=== PATIENT | female | born 1935 | race Caucasian/White ===

== ENCOUNTER → 2016-03-30 | Outpatient (CLI) | payer OTHER ==
[~2016-03-30] MED LIST: ADVIL PO; ASPEC81; CLTP PO; CRDCD240; GLUC10007 PO; RXC5 PO; TRIA37.5 PO; VITA400C15 PO
--- NOTE | 2016-03-30 11:55 | DIAGNOSTIC IMAGING REPORT ---
MODIFIED BARIUM SWALLOW CLINICAL HISTORY: Coughing while eating. COMPARISON STUDY: No previous studies for comparison. Fluoroscopy time: 2.4 minutes. FINDINGS: No aspiration was identified within liquids, nectar thick liquids, pudding or crackers with paste. Swallowing mechanism was intact. Note was made of moderate esophageal dysmotility. A suspected small hiatal hernia is suboptimally assessed on this exam. IMPRESSION: 1. Intact swallowing mechanism. No tracheal aspiration. 2. Moderate esophageal dysmotility and a small hiatal hernia, suboptimally assessed on this exam. Electronically signed by: Dewey Melendez M.D. 03/30/2016 11:53 AM Dictated Date/Time: 03/30/2016 11:50 AM
--- NOTE | 2016-03-30 15:32 | SWALLOWING EVALUATION ---
REFERRING SPEECH PATHOLOGIST: N/A HISTORY: This 80 year-old female was referred for a VFSS at [facility] in order to address c/o increased coughing while eating x 2 months. It is worse in the evening than the morning. The patient reports that the symptoms began immediately after having shoulder surgery. The patient has a PMH significant for hypertension, lumbar spinal stenosis, OA, and DJD. She has recently started taking a PPI in the morning, but I see no formal documentation of a diagnosis of GERD. Currently the patient's diet level is regular. PROCEDURE: The patient was seen in the Radiology Department of [facility] for the VFSS. Cursory examination of the oral cavity revealed adequate dentition. Movement of the articulators was WNL. The patient was seated on a stool and was viewed in both the Anterior-Posterior (A-P) and Lateral planes. Volitional phonation exercises completed in the A-P plane revealed bilateral vocal fold movement and vocal intensity within functional limits. In the lateral plane, the patient was given the following boluses: 1 tsp. thin liquid barium x 2, single swallow thin liquid barium self-presented from a cup, sequential swallows of thin liquid barium self-presented from a straw, 1 tsp. nectar-thick liquid barium, single swallow nectar-thick liquid barium self-presented from a cup, 1 tsp. barium pudding, and 1 club cracker with barium pudding. The patient was then repositioned into the A-P plane and given 1 tsp. barium pudding and a single swallow thin liquid barium self-presented from a cup as liquid wash. RESULTS: Oral Stage: There was no interlabial bolus escape. Cohesive bolus between tongue and palate during oral bolus hold exercise. Timely and efficient mastication. Brisk lingual movement for bolus transfer. Trace residue of oral structures after initial swallow of bolus. Pharyngeal swallow initiation when the bolus head was at the posterior angle of the ramus. Oral stage of the swallow was WNL. Pharyngeal Stage: No bolus between the soft palate and pharyngeal wall. Complete superior movement of the thyroid cartilage with complete approximation of the arytenoids to the epiglottic petiole. Complete anterior hyoid excursion. Complete epiglottic inversion. Complete laryngeal vestibular closure. Complete pharyngeal stripping wave. Complete pharyngeal contraction in the AP plane. Complete distention and duration of PES opening. No contrast between tongue base and pharyngeal wall. Complete pharyngeal clearance. No penetration or aspiration during the study. The pharyngeal stage of the swallow was WNL. Esophageal Stage: Mid-distal esophageal retention evidenced. Liquid wash helpful in minimizing retention. SUMMARY/RECOMMENDATIONS: This patient presents with normal oral-pharyngeal swallow function, but presents with s/s esophageal dysfunction. The following is recommended: 1. Slippery diet: choose loose, moist items and avoid dry, doughy, thick items 2. Compensatory strategies: alternate solids and liquids, avoid icy cold beverages, remain upright 20-30 minutes after meal 3. Consideration of f/u with GI A summary of the results and recommendations was discussed with the patient and her daughter immediately following the study. They are anticipating f/u with the referring physician. Thank you for referral of this patient. Please contact me at if any additional information is needed.
--- NOTE | 2016-04-06 08:29 | CODING QUERY MEDICAL NECESSITY ---
SUPPORTING DIAGNOSIS NEEDED Dr. De La Garza, A supporting diagnosis is required for the test/procedure performed on this patient in order for us to be reimbursed by the patient's insurance. Please provide a supporting diagnosis for the following test/procedure listed below next to the test name along with your signature. *If there is no additional diagnosis for this patient that would support the following test/procedure please document that below next to the test/procedure. Test(s)/Procedure(s) that require a supporting diagnosis: * ([id number]) BARIUM SWALLOW DIAGNOSIS: DATE OF SERVICE: 03/30/16 Provider Signature: Date: Thank you Hollis Franklin [facility] Information Management Once completed, please kindly fax back to [phone] For questions please call [phone]
== END | disposition home or self-care (01) ==
LOC: C.RAD 10:53
PROVIDERS: ATTEND Internal Medicine
DX: R05 Cough (principal); K22.4 Dyskinesia of esophagus; K44.9 Diaphragmatic hernia without obstruction or gangrene

== ENCOUNTER → 2016-05-24 | Outpatient (CLI) | payer OTHER ==
[2016-05-24 13:20] LABS: BASO % 0.4 %; BASO ABS # 0.04 K/uL (0-0.2); COMPLETE YES; EOS % 0.9 %; HEMATOCRIT 41.7 % (37-47); IG% 0.3 %; LYMPH % 26.1 %; MEAN CORPUSCULAR HEMOGLOBIN 29.7 pg (25-34); MEAN CORPUSCULAR HGB CONC 34.5 g/dl (32-36); MEAN PLATELET VOLUME 9.1 fL (7.4-10.4); MONO % 7.6 %; NEUT % 64.7 %; PLATELET COUNT 223 K/uL (130-400); RED BLOOD COUNT 4.85 M/uL (4.2-5.4); WHITE BLOOD COUNT 10.72 K/uL (4.8-10.8)
[2016-05-27 11:28] LABS: QUANTIF TB AG-NIL <0.00 IU/ML; QUANTIFERON NIL 0.08 IU/ML
== END | disposition home or self-care (01) ==
LOC: C.LABBFT 11:54
PROVIDERS: ATTEND Physician Assistant
DX: R05 Cough (principal)

== ENCOUNTER 2017-02-09 07:03 | Emergency (ER) | payer OTHER ==
[~2017-02-09] VITALS: Ht 157.5 cm; Wt 81.5 kg
[2017-02-09 07:05] VITALS: TEMP 36.4; Ht 157.5 cm; Wt 81.5 kg
[2017-02-09] MEDS ORDERED: DILT240C57 PO (07:14)
[2017-02-09] MEDS ORDERED: RANI150T3 PO (07:14)
[2017-02-09] MEDS ORDERED: VITA400C28 PO (07:14)
[2017-02-09] MEDS ORDERED: ASPI81TA28 PO (07:14)
[2017-02-09 09:50] VITALS: BP 134/86; PULSE 78; O2SAT 97
--- NOTE | 2017-02-09 10:05 | DIAGNOSTIC IMAGING REPORT ---
L VENOUS DOPP LOWER EXT UNILAT CLINICAL HISTORY: 81 years-old Female presenting with L ankle swelling - r/o DVT. TECHNIQUE: Real-time grayscale and color and spectral Doppler ultrasound imaging of the veins of the left lower extremity was performed. Compression and augmentation were also utilized. COMPARISON: None. FINDINGS: Left: Common femoral vein: Patent. Greater saphenous vein: Patent. Deep femoral vein: Patent. Femoral vein: Patent. Popliteal vein: Patent. Calf veins: Patent. Other: None. IMPRESSION: No evidence of deep venous thrombosis. Electronically signed by: Maykel Abebe M.D. 02/09/2017 10:03 AM Dictated Date/Time: 02/09/2017 9:40 AM
--- NOTE | 2017-02-09 12:13 | EMERGENCY ROOM VISIT NOTE ---
History First contact with patient: 07:23 Chief Complaint: ANKLE PAIN Stated Complaint: ANKLE PAIN History of Present Illness The patient is a 81 year old female who presents to the Emergency Room with complaints of ankle swelling and pain that started overnight. The patient reports that she did wear some high-heeled shoes over the past few days, and thinks that this may have exacerbated her pain. She does report a prior history of pulmonary embolus, and came to the emergency department to rule out deep vein thrombosis. The patient denies any prior history of DVTs or other coagulopathies. The patient denies any recent injuries to the left ankle, and denies any paresthesias or numbness of the left foot or toes. She reports that the pain does somewhat go up into the leg. She does have a history of chronic lumbar pain status post surgery without any ongoing sciatica. The patient reports that the pain is worse when she tries to dorsiflex the ankle. She rates her discomfort a 7 out of 10. 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 (3) Hyperlipidemia, Unspecified (4) Hypertension Nos (5) Osteoarthritis of shoulder (6) Personal History Of Colonic Polyps (7) Personal History Of Pulmonary Embolism (8) Spinal Stenosis, Lumbar Reg, W/Out Neurogenic Claudication Surgical Problems: (1) Acquired Absence Of Both Cervix And Uterus (2) History of back surgery (3) History of shoulder surgery (4) Knee Joint Replacement Status Family History FH: cancer FH: heart disease FH: hypertension Social History Smoking Status: Never Smoker Alcohol Use: none Marital Status: Housing Status: lives alone Occupation Status: retired Current/Historical Medications Scheduled Aspirin (Aspirin Ec), 81 MG PO DAILY Diltiazem Hcl Coated Beads (Cardizem Cd), 240 MG PO QAM Glucosamine Sulfate (Glucosamine), 1,000 MG PO QAM Ranitidine Hcl (Zantac), 150 MG PO DAILY Triamterene/Hctz (Dyazide 37.5MG/25MG), 1 TAB PO QAM Vitamin E (Alph-E), 400 UNITS PO DAILY Physical Exam Vital Signs Date Time Temp Pulse Resp B/P (MAP) Pulse Ox O2 Delivery O2 Flow Rate FiO2 12/22/17 09:50 78 134/86 97 Room Air 02/09/17 07:05 36.4 79 18 126/70 94 Room Air Physical Exam CONSTITUTIONAL: Healthy and well nourished. Alert and oriented X 3 with positive affect. Patient does not appear in any acute distress. HEENT: Normocephalic, atraumatic. Pupils equal, round and reactive. NECK: Full active range of motion without discomfort. MUSCULOSKELETAL: Examination of the left ankle shows mild anterior swelling without erythema or ecchymosis. She is tender over the anterior tendons. No focal tenderness over the medial or lateral malleoli or ligaments. Negative anterior draw. No focal tenderness through the dorsal midfoot, metatarsals, phalanges, calcaneus, Achilles tendon or gastroc. Pedal pulses are intact. INTEGUMENTARY: No rash or other significant dermatologic conditions noted. NEUROLOGIC: Left foot and toes are sensory intact. Medical Decision & Procedures ER Provider Diagnostic Interpretation: Venous ultrasound of the left lower extremity is negative for deep vein thrombosis. Radiologist report is as follows: L VENOUS DOPP LOWER EXT UNILAT CLINICAL HISTORY: 81 years-old Female presenting with L ankle swelling - r/o DVT. TECHNIQUE: Real-time grayscale and color and spectral Doppler ultrasound imaging of the veins of the left lower extremity was performed. Compression and augmentation were also utilized. COMPARISON: None. FINDINGS: Left: Common femoral vein: Patent. Greater saphenous vein: Patent. Deep femoral vein: Patent. Femoral vein: Patent. Popliteal vein: Patent. Calf veins: Patent. Other: None. IMPRESSION: No evidence of deep venous thrombosis. ED Course Patient history and physical exam were performed. Nurse's notes were reviewed. Vital signs were reviewed and were normal. Based on physical exam findings and history, I suspect that the patient has a mild tendinitis from wearing high heeled shoes. However, the patient is concerned for the possibility of DVT. A venous ultrasound was performed and was negative for deep vein thrombosis. The patient was encouraged to intermittently apply ice to the ankle. She may also wear an ankle support as needed. Ibuprofen or Tylenol if needed for additional pain relief. She was encouraged to follow-up with her PCP or orthopedics if symptoms are not improving within the next week. The patient was happy with plan of care, voiced understanding of all discharge instructions , refused any analgesics while in the emergency department, and rated her pain a 4 out of 10 at the conclusion of my exam. The patient was also seen and examined by Dr. Cooper, ED attending physician , who agrees with workup and plan of care. Medical Decision Medication Reconcilliation Current Medication List: was personally reviewed by me Blood Pressure Screening Patient's blood pressure: Normal blood pressure Impression Primary Impression: Left ankle tendonitis Departure Information Referrals Nestor De La Garza D.OErnestine (PCP) Patient Instructions My [facility]
== END 2017-02-09 10:49 | disposition home or self-care (01) ==
LOC: C.EDB 07:04
DX: M77.9 Enthesopathy, unspecified (principal); M25.472 Effusion, left ankle; Z79.899 Other long term (current) drug therapy; I10 Essential (primary) hypertension; Z86.711 Personal history of pulmonary embolism

== ENCOUNTER 2019-11-03 06:48 | Observation (INO) ==
--- NOTE | 2019-10-06 15:52 | PAT Medication Instructions ---
Medication Instructions Date of Service October 06, 2019 Home Medications Medication Instructions Recorded meclizine 25 mg PO TID PRN #14 tab 09/27/19 ondansetron HCl [Zofran] 4 mg PO Q6H PRN #14 tab 09/27/19 aspirin 81 mg tablet,delayed release 81 mg PO MOWEFR@0800 diltiazem HCl 240 mg capsule,extended release 24 hr 240 mg PO QAM triamterene 37.5 mg-hydrochlorothiazide 25 mg capsule 1 cap PO QAM vitamin E (dl, acetate) 400 unit capsule 400 units PO QAM gabapentin 100 mg capsule 100 mg PO HS ibuprofen [Advil] 600 - 800 mg PO BID PRN meclizine 25 mg PO TID PRN ondansetron HCl [Zofran] 4 mg PO Q6H PRN cholecalciferol (vitamin D3) [Vitamin D3] 25 mcg PO QAM ASK your surgeon for instructions aspirin 81 mg tablet,delayed release 81 mg PO MOWEFR@0800 ibuprofen [Advil] 600 - 800 mg PO BID PRN STOP taking 2 weeks before surgery If surgery is within 2 weeks, stop taking as soon as possible. vitamin E (dl, acetate) 400 unit capsule 400 units PO QAM DO NOT take the morning of surgery triamterene 37.5 mg-hydrochlorothiazide 25 mg capsule 1 cap PO QAM cholecalciferol (vitamin D3) [Vitamin D3] 25 mcg PO QAM Take morning of surgery With a small sip of water, OTHERWISE NOTHING TO EAT OR DRINK AFTER MIDNIGHT: diltiazem HCl 240 mg capsule,extended release 24 hr 240 mg PO QAM meclizine 25 mg PO TID PRN (if needed) ondansetron HCl [Zofran] 4 mg PO Q6H PRN (if needed) Take evening before surgery gabapentin 100 mg capsule 100 mg PO HS meclizine 25 mg PO TID PRN (if needed) ondansetron HCl [Zofran] 4 mg PO Q6H PRN (if needed) Other Notes If you have any questions please call us at [phone] or [phone] or [phone] or [phone]
--- NOTE | 2019-10-07 12:17 | Anesthesiology Consultation ---
Date of Service October 07, 2019 Assessment & Plan (1) Encounter for pre-operative examination: COVID Status: As of 10/06 assessment, patient denies travel to endemic area, known exposure/sick contacts, or symptoms of COVID19. Patient instructed that they and their household members must follow strict social distancing guidelines, wear a mask in public and avoid travel for 14 days prior to surgery. Preoperative COVID19 testing to be completed prior to surgery per surgeon's arra ngements. Patient made aware to self-isolate as much as possible between COVID testing and surgery. *Daughter and patient note that the patient requires very little medicine for sedation--at recent ED visit the patient was given 12.5 mg of Benadryl and was completely sedated for several hours per their report. Chart Review Chart Review: Acceptable Risk for Surgery and Patient seen in Pre Admission Testing Teaching & Discussion Instructed NPO after midnight before surgery, except medications with 15 cc of water. Medication instructions provided according to the PAT guidelines. History Surgery Operation Date: 11/03/19 11:10 Proposed Procedures p Right Total Knee Arthroplasty - Erick Montes De Oca DO Height/Weight Height: 5 ft 3 in Weight: 77.111 kg Allergies Allergy/AdvReac Type Severity Reaction Status Date / Time No Known Allergies Allergy Verified 09/30/19 13:19 Medications Home Medications Medication Instructions Recorded Confirmed Last Taken aspirin 81 mg tablet,delayed 81 mg PO MOWEFR@0800 06/27/18 09/30/19 09/24/19 release diltiazem HCl 240 mg 240 mg PO QAM 06/27/18 09/30/19 09/26/19 capsule,extended release 24 hr triamterene 37.5 1 cap PO QAM 06/27/18 09/30/19 09/26/19 mg-hydrochlorothiazide 25 mg capsule vitamin E (dl, acetate) 400 unit 400 units PO QAM 06/27/18 09/30/19 09/26/19 capsule gabapentin 100 mg capsule 100 mg PO HS cap 07/31/19 09/30/19 09/26/19 200 mg ibuprofen [Advil] 600 - 800 mg PO BID PRN 09/27/19 09/30/19 09/26/19 12:00 600 mg meclizine 25 mg PO TID PRN #14 tab 09/27/19 09/30/19 Unknown ondansetron HCl [Zofran] 4 mg PO Q6H PRN #14 tab 09/27/19 09/30/19 Unknown cholecalciferol (vitamin D3) 25 mcg PO QAM 09/29/19 09/30/19 Unknown [Vitamin D3] Past Medical History Medical History (Updated 10/07/19 @ 12:18 by Donovan Overton) Fatty liver disease, nonalcoholic With weight loss> RESOLVED HTN (hypertension) Hx: UTI (urinary tract infection) Treated at [facility] ED 09/26, had some stroke-like symptoms, imaging negative, ruled 2/2 UTI and vertigo. Lumbar facet joint syndrome Osteoarthritis Pulmonary embolism 25 YRS AGO AFTER HYSTERECTOMY> COUMADIN Spinal stenosis Moderate at L3-4 Vertigo Chronic, intermittent. Exercise / Class Metabolic Activity III < 4 Walking/Shop/Light housework (Denies CP or SOB with ambulation on one level; feels would be mildly SOB with 1 FOS) Past Family History Family History Mother Breast cancer Daughter Breast cancer Past Surgical History Surgical History History of adenoidectomy History of colonoscopy History of esophagogastroduodenoscopy (EGD) History of fusion of lumbar spine History of hysterectomy History of knee replacement LEFT History of shoulder replacement LEFT History of tonsillectomy History of tooth extraction Past Anesthesia History No Hx of Anesthesia Complications and No Family Hx of Anesthesia Complications History of PONV No Hx of PONV and No Hx of Motion Sickness Social History Smoking Status: Never smoker Do You Dip or Chew Tobacco: No Hx Alcohol Use: No (very rare) Alcohol type: wine alcohol intake frequency: holidays/special occasions only Hx Substance Use: No substance use type: does not use Review of Systems Pt denies any recent chest pain, shortness of breath, palpitations, cough, fever, URI, or uncontrolled acid reflux. Physical Exam Vital Signs BP: 120/78 P: 76bpm SPO2: 94% RA T: 97.8 F R: 16 ENMT Mouth: + dental restorations (few crowns on molars); no chipped teeth and no loose teeth Thyromental Distance: > or= 3.5 Finger Breadths (3.5) Mallampati Class: III Neck normal visual inspection; neck extension not limited Respiratory normal respiratory effort Auscultation: lungs clear to auscultation bilaterally Cardiovascular Rate/Rhythm: regular rate and regular rhythm Heart Sounds: no murmur Extremities: no edema Testing Laboratory Results 10/07/19 12:25 Blood Type A Negative 10/07/19 12:25 Antibody Screen NEGATIVE 10/07/19 12:25 09/27/19 WBC: 10.74 H/H: 14.9/42.8 PLATELETS: 258 PT: 10.6 PTT: 23.6 INR: 1.0 Electrocardiogram Date: 09/27/19 Findings: + NSR @ (70bpm with 1st degree AV block) Possible inferior infarct, age undetermined. Compared to EKG from 11/24/15, T wave amplitude has decreased in lateral leads. Chest X-Ray Date: 10/07/19 Findings: + NAD
--- NOTE | 2019-10-07 13:03 | XRay Report ---
XR chest Pre-admission PA/Lat CLINICAL HISTORY: Preoperative evaluation. COMPARISON STUDY: Chest CT May 18, 2016. FINDINGS: Lung volumes are normal. Lungs are clear. There is no pneumothorax or pleural effusion. Car diac size is normal. Mediastinal contours are normal. There is no evidence for pulmonary edema. Incid ental note is made of a left shoulder arthroplasty and partially visualized postoperative findings wi thin the lumbar spine. Tortuosity of the descending thoracic aorta is unchanged. IMPRESSION: No acute cardiopulmonary findings. ACT 112: Negative or not required by law. Electronically signed by: Dewey Melendez M.D. 10/07/2019 1:02 PM
[2019-10-07 14:31] LABS: BUN Creatinine Ratio 24.5 (10-20); Calcium 8.7 mg/dl (8.5-10.1); Est GFR (African American) 93.4; Est GFR (Non-African American) 80.6; Potassium 4.2 mmol/L (3.5-5.1)
--- NOTE | 2019-10-30 07:37 | History & Physical Report ---
Date of Service October 30, 2019 Assessment & Plan (1) Osteoarthritis of right knee: We will proceed with a right total knee arthroplasty. Postoperatively she will be started on aspirin for DVT prophylaxis and kept overnight in the hospital for postoperative medical management. She plans to use an inpatient rehab facility upon discharge. Present on Admission?: Yes History of Present Illness Chief Complaint: Primary osteoarthritis of the right knee Primary Care Provider: Nestor De La Garza DO Sara is a pleasant 84-year-old female who has been dealing with chronic increasing right knee pain. X-rays and clinical examination have been diagnostic for advanced osteoarthritis of the right knee. After failing conservative treatment, she has elected to proceed with a right total knee arthroplasty. She does have a history of a left knee replacement done by Dr. Taurus ca about 4 years ago. She is done well with that. She also has a history of a pulmonary embolism following a hysterectomy about 30 years ago. She has had no issues since. Allergies Allergy/AdvReac Type Severity Reaction Status Date / Time No Known Allergies Allergy Verified 09/30/19 13:19 Home Medications Home Medications Medication Instructions Recorded Confirmed Type aspirin 81 mg tablet,delayed 81 mg PO MOWEFR@0800 06/27/18 09/30/19 History release diltiazem HCl 240 mg 240 mg PO QAM 06/27/18 09/30/19 History capsule,extended release 24 hr triamterene 37.5 1 cap PO QAM 06/27/18 09/30/19 History mg-hydrochlorothiazide 25 mg capsule vitamin E (dl, acetate) 400 unit 400 units PO QAM 06/27/18 09/30/19 History capsule gabapentin 100 mg capsule 100 mg PO HS cap 07/31/19 09/30/19 History ibuprofen [Advil] 600 - 800 mg PO BID PRN 09/27/19 09/30/19 History meclizine 25 mg PO TID PRN #14 tab 09/27/19 09/30/19 Rx ondansetron HCl [Zofran] 4 mg PO Q6H PRN #14 tab 09/27/19 09/30/19 Rx cholecalciferol (vitamin D3) 25 mcg PO QAM 09/29/19 09/30/19 History [Vitamin D3] Past Med/Surg History Medical History Fatty liver disease, nonalcoholic With weight loss> RESOLVED HTN (hypertension) Hx: UTI (urinary tract infection) Treated at [facility] ED 09/26, had some stroke-like symptoms, imaging negative, ruled 2/2 UTI and vertigo. Lumbar facet joint syndrome Osteoarthritis Pulmonary embolism 25 YRS AGO AFTER HYSTERECTOMY> COUMADIN Spinal stenosis Moderate at L3-4 Vertigo Chronic, intermittent. Surgical History History of adenoidectomy History of colonoscopy History of esophagogastroduodenoscopy (EGD) History of fusion of lumbar spine History of hysterectomy History of knee replacement LEFT History of shoulder replacement LEFT History of tonsillectomy History of tooth extraction Family History Mother Breast cancer Daughter Breast cancer Social History Smoking Status: Never smoker Second Hand Exposure: Yes (HUSBNAND SMOKED); Hx Alcohol Use: No (very rare) Hx Substance Use: No Preferred Language: Danish Communication Ability: Effective Visual Impairment: Limited Hearing Ability: Normal Painter Ski Edge Required: No Beliefs That Will Affect Care: None marital status: / Current Living Situation: Alone Current Living Situation Comment: L[facility] IN [facility] current occupational status: retired Feels Safe at Home: Yes Review of Systems Review of Systems: All systems reviewed & are unremarkable except as noted in HPI & below Physical Exam Constitutional: WD/WN, vitals as above Eyes: PERRL, conjunctivae normal, anicteric sclerae ENMT: external ear and nose normal, oropharynx normal Neck: trachea midline, no thyromegaly Respiratory: normal respiratory effort Cardiovascular: RRR, no murmur, no edema Gastrointestinal (Abdomen): normal bowel sounds, soft, nontender, no hepatosplenomegaly Musculoskeletal: On physical examination of the right knee there is a trace effusion. There is near full range of motion and no evidence of instability. There is significant tenderness palpation along the medial and lateral joint lines and over the distal femoral condyles. Psychiatric: A+Ox3, euthymic affect Results & Data Results & Data ([facility]) Diagnostic Findings Radiographs of the right knee demonstrate advanced osteoarthritis with joint space narrowing osteophyte formation and [id number] articulation. PG Care Time/CCT Total # of Minutes Spent Total Time Spent with Patient: Total time spent is greater than 50% in coordina tion of care (as documented) at patient's floor/unit and/or counseling patient: Coding Level of Care Code 08851 OBS Care - Level 2 Diagnoses Osteoarthritis of right knee M17.11
[~2019-11-03 06:48] MED LIST changes: +ACETAMINOPHEN 500 MG TAB PO SCH; -ADVIL PO; -ASPEC81; +BUPIVACAINE 0.5 % 5 MG/1 ML PF 10ML VIAL ONE; +CEFAZOLIN 2000MG 2,000 MG/15 ML SYR IV SCH; -CLTP PO; -CRDCD240; +FAMOTIDINE 20 MG TAB PO SCH; +GABAPENTIN 300 MG CAP PO SCH; -GLUC10007 PO; +LR 500ML BOLUS, THEN 15ML/HR IV SCH; +LR 60ML/HR IV SCH; +ROPIVACAINE 0.5% 5 MG/ML 30 ML VIAL ONE; +ROPIVACAINE 0.5% HCL/PF 150 MG, BUPIVACAINE 0.5% MPF 30 ML, EPINEPHrine 30MG/30ML (OR U... INSTIL SCH; -RXC5 PO; +TRANEXAMIC ACID 1,000 MG **IV Intra-op IV SCH; +TRANEXAMIC ACID 1,000 MG **IV Pre-op IV SCH; -TRIA37.5 PO; -VITA400C15 PO; +dexAMETHasone 4 MG TAB PO SCH
[2019-11-03] MEDS ORDERED: fentaNYL citrate 100 MCG/2 ML VIAL ONE (07:53)
[2019-11-03] MEDS ORDERED: MIDAZOLAM HCL 1 MG/ML 2ML VIAL ONE (07:53)
--- NOTE | 2019-11-03 08:52 | History & Physical Bridge Note ---
Date of Service November 03, 2019 History & Physical Bridge Note I have examined the patient, reviewed the History & Physical and in the interval since the performance of the History & Physical I have noted the following changes of clinical significance: no changes noted
[2019-11-03] MEDS ORDERED: ORTHO JOINT ANESTHETIC ONE (09:04)
[2019-11-03] MEDS ORDERED: LIDOCAINE HCL 2% 2 ML VIAL/AMP(20MG/ML) INFIL ONE (09:43)
[2019-11-03] MEDS ORDERED: PROPOFOL IV EMULSION 10 MG/ML 20 ML VIAL IV ONE (09:43)
--- NOTE | 2019-11-03 10:49 | Operative Report ---
PG Post Operative Report Pre & Post Diagnosis Operation Date: 11/03/19 09:20 Pre-Op Diagnosis: Degenerative Joint Disease Right Knee Post-Op Diagnosis: Degenerative Joint Disease Right Knee I identified the patient and participated in the time-out.: Yes Procedure Operation Date: 11/03/19 09:20 Actual Procedures p Right Total Knee Arthroplasty, Cemented(Right) - Erick Montes De Oca DO Surgeon Erick Montes De Oca DO Clinical Care Coordinator Erick Frye PAC Estimated Blood Loss 10 Findings Consistent with Post-Op Diagnosis Specimens Right femoral and tibial bone Complications none Disposition Disposition: Recovery Room Indications Sara is a pleasant 84-year-old female who is been dealing with chronic increasing right knee pain. X-rays and clinical examination have been diagnostic for advanced osteoarthritis of the right knee. After failing conservative treatment, she has elected to proceed with a right total knee arthroplasty. Description of Procedure Implants used: I used a Gabrielle Persona total knee arthroplasty system with a size 7 standard posterior stabilized femur, D tibia, 32 patella, and a size 14 CPS polyethylene bearing. All components were cemented in place with Palacos G cement. Sara arrived [facility] for the above procedure. She was seen in the preoperative holding area and the operative extremity was identified and signed. She was given a preoperative antibiotic, TXA, a spinal anesthetic and an adductor nerve block. She was taken back to the operating room and laid on the table in supine position. She was given basic sedation. The operative k nee was then prepped and draped in sterile fashion. A timeout was done, and the patient and the operative extremity was properly identified. A midline incision was made directly over the patella. Dissection was taken down to the extensor mechanism. A subvastus arthrotomy was used. The medial retinaculum was released and the fat pad was mostly excised. The knee was flexed and the ACL, PCL, and meniscus were removed. A drill was sent down the center of the femoral canal followed by an intramedullary ramiro. Off that ramiro a distal femoral cutting block was placed. 9 mm was resected off the distal femur at 5 of valgus. A posterior referencing AP sizing guide was then placed on the distal femur. The femur measured to be a size 7 standard. 2 drill holes were placed in 3 of external rotation. A 4-in-1 cutting block was then impacted into place. Anterior, posterior, and chamfer cuts were then made. The box was then resected for the posterior stabilizing component. The proximal tibia was then exposed. An external tibial alignment guide was placed. A tibial cut guide was then anchored in place and the proximal tibia was then resected. The posterior aspect of the knee was then opened up and any additional meniscus fragments and osteophytes were removed. The tibia measured to be a size D. The tibial plate was then placed in the appropriate rotation and the tibia was drilled and punched. Trial components were then placed. I used a size 14 CPS polyethylene insert. The knee was brought through a full range of motion and felt to be stable. The peg holes for the femoral component were then drilled. The patella was then everted and 9 mm was resected off the posterior aspect of the patella. The patella measured to be a size 32. 3 peg holes were then drilled. A trial patella was placed. The knee was once again brought through a full range of motion and felt to be stable. Trial components were then removed. The surrounding soft tissues were injected with 100 cc of an orthopedic pain control cocktail. All components were then cemented into place with Palacos G cement. The final polyethylene insert was then snapped into place. Once cement was dry the tourniquet was deflated. Hemostasis was obtained. A dilute betadyne lavage was then done for 3 minutes. The joint was then irrigated with normal saline solution. The subvastus arthrotomy was then closed with #1 Vicryl suture. The skin was closed with 2-0 Vicryl, 3-0V lock suture, and jennifer. A Silverlon and a soft compressive dressing were placed. She was then transferred to a hospital bed and taken to the postanesthesia care unit in stable condition. She tolerated the procedure well. Erick Frye PA-C, was present for the entire procedure. He was critical for patient positioning, prepping, draping, retraction exposure, wound closure and application of sterile dressing. I attest to the content of the Intraoperative Record and any orders documented therein. Any exceptions are noted below.
--- NOTE | 2019-11-03 11:43 | Anesthesiology Progress Note ---
Date of Service November 03, 2019 Anesthesia Post Procedure Vital Signs Vital Signs: Temp Pulse Pulse Resp BP Pulse Ox 11/03/19 11:25 36.5 C 64 16 101/52 L 93 11/03/19 11:15 64 16 96/55 L 93 11/03/19 11:05 67 16 97/52 L 97 11/03/19 10:56 36.4 C L 70 16 93/53 L 97 11/03/19 08:40 73 20 128/87 95 11/03/19 07:21 36.5 C 84 18 141/84 H 97 Transfer of Care Handoff Completed per policy Notes Mental Status: alert / awake / arousable and participated in evaluation Patient Amnestic to Procedure: Yes Nausea / Vomiting: adequately controlled Pain: adequately controlled Airway Patency, RR, SpO2: stable & adequate BP & HR: stable & adequate Hydration State: stable & adequate Neuraxial Anesthesia: was administered and sensory block is resolving Anesthetic Complications: no major complications apparent
--- NOTE | 2019-11-03 11:50 | XRay Report ---
XR knee RT 2V routine CLINICAL HISTORY: Postoperative examination COMPARISON: None. DISCUSSION: There are postsurgical changes of a total right knee arthroplasty and patellar resurfacin g. The femoral tibial components appear well seated. There are overlying skin jennifer. There is gas p resent within the soft tissues consistent with recent surgery. IMPRESSION: Postsurgical changes of a total right knee arthroplasty. ACT 112: Negative or not required by law. Electronically signed by: Dwain Guzman M.D. 11/03/2019 11:46 AM
[2019-11-03] MEDS ORDERED: NALOXONE HCL 0.4 MG/1 ML VIAL/CARP IV PRN (11:58)
[2019-11-03] MEDS ORDERED: ONDANSETRON INJ 2 MG/ML 2 ML VIAL IV PRN (11:58)
[2019-11-03] MEDS ORDERED: METOCLOPRAMIDE HCL INJ 5 MG/ML 2 ML VIAL IV PRN (11:58)
[2019-11-03] MEDS ORDERED: HYDROmorphone INJ 0.5 MG/0.5 ML SYR IV PRN (11:58)
[2019-11-03] MEDS ORDERED: bisacodyL 10 MG SUPP PR PRN (11:58)
[2019-11-03] MEDS ORDERED: MAGNESIUM HYDROXIDE SUSP 30 ML UDC PO PRN (11:58)
[2019-11-03] MEDS ORDERED: ONDANSETRON 4 MG OD TAB PO PRN (12:02)
[2019-11-03] MEDS ORDERED: MECLIZINE HCL 25 MG TAB PO PRN (12:15)
[2019-11-03] MEDS ORDERED: SODIUM CHLORIDE 0.9% 1000ML 1,000 ML IV SCH (12:15)
[2019-11-03] MEDS: ACETAMINOPHEN 500 MG TAB PO SCH ×2 (13:05→21:10)
[2019-11-03] MEDS: KETOROLAC TROMETHAMINE 15 MG/ML VIAL IV SCH ×2 (13:06→19:14)
[2019-11-03] MEDS: CEFAZOLIN 2000MG 2,000 MG/15 ML SYR IV SCH (16:29)
[2019-11-03] MEDS: SENNA 8.6 MG TAB PO SCH (21:10)
[2019-11-03] MEDS: GABAPENTIN 100 MG CAP PO SCH (21:10)
[2019-11-03] MEDS: DOCUSATE SODIUM 100 MG CAP PO SCH (21:10)
[2019-11-03] MEDS: ASPIRIN 81 MG ECTAB PO SCH (21:10)
[2019-11-04] MEDS: CEFAZOLIN 2000MG 2,000 MG/15 ML SYR IV SCH (00:02)
[2019-11-04] MEDS: KETOROLAC TROMETHAMINE 15 MG/ML VIAL IV SCH ×2 (00:02→06:44)
[2019-11-04 06:17] LABS: Hematocrit (blood only) 38.6 % (37-47); Hemoglobin 12.8 g/dL (12.0-16.0); Mean Corpuscular Hemoglobin 29.9 pg (25-34); Mean Corpuscular Hgb Conc 33.2 g/dL (32-36); Mean Corpuscular Volume 90.2 fL (80-100); Mean Platelet Volume 10.1 fL (7.4-10.4); Platelet Count 289 K/uL (130-400); RDW Coefficient of Variation 13.5 % (11.5-14.5); RDW Standard Deviation 44.6 fL (36.4-46.3); Red Blood Count 4.28 M/uL (4.2-5.4); White Blood Count 19.28 K/uL (4.8-10.8)
[2019-11-04] MEDS: ACETAMINOPHEN 500 MG TAB PO SCH ×3 (06:21→21:45)
[2019-11-04 06:52] LABS: BUN Creatinine Ratio 21.8 (10-20); Calcium 9.3 mg/dl (8.5-10.1); Est GFR (Non-African American) 79.4
--- NOTE | 2019-11-04 07:07 | Orthopedic Progress Note ---
Date of Service November 04, 2019 Assessment & Plan (1) Status post right knee replacement: Overall she is doing fairly well. She got into much pain in the right knee. She will be seen by physical therapy today for ambulation and range of motion exercises. She is on aspirin for DVT prophylaxis. She was hoping to be discharged to a rehab facility. I think that is reasonable because she does live alone at home. If a bed becomes available for rehab facility today, and she is doing fairly well, then she can be discharged later today to the rehab facility. She is scheduled to follow-up with orthopedics in 2 weeks. Present on Admission?: Yes Admission and Anticipated Discharge Date Admission Date: November 03, 2019 Leena Ruiz was seen and examined at bedside this morning. Overall she is doing fairly well. She is having too much pain in the right knee. She has been up and ambulating around the room. She has no complaints. Physical Exam Musculoskeletal: On physical examination of the right knee, the dressing is clean and dry. She is flexing her knee to almost 90 degrees. She has active dorsiflexion and plantarflexion of her right ankle. Results & Data ([facility]) Vital Signs (Past 12 Hours) Vital Signs Temp Pulse Pulse Resp BP Pulse Ox 11/04/19 02:23 36.5 C 65 16 122/72 95 11/03/19 22:56 36.7 C 70 16 124/76 94 11/03/19 20:00 36.8 C 71 16 115/70 92 Laboratory Results H & H 11/04/19 Range/Units 05:32 Hgb 12.8 (12.0-16.0) g/dL Hct 38.6 (37-47) % Diagnostic Findings Postoperative x-rays of the right knee show the prosthesis to be in anatomic alignment without any evidence of fracture, dislocation, or loosening. PG Care Time/CCT Total # of Minutes Spent Total Time Spent with Patient: Total time spent is greater than 50% in coordination of care (as documented) at patient's floor/unit and/or counseling patient: Coding Level of Care Code None Diagnoses Status post right knee replacement Z96.651
[2019-11-04] MEDS: OXYCODONE HCL IR 5 MG TAB (IMMEDIATE RELEASE) PO PRN ×3 (07:37→21:42)
[2019-11-04] MEDS ORDERED: dexAMETHasone 4 MG TAB PO SCH (08:00)
[2019-11-04] MEDS: MULTIVITAMIN TAB PO SCH (09:19)
[2019-11-04] MEDS: ASPIRIN 81 MG ECTAB PO SCH ×2 (09:19→21:44)
[2019-11-04] MEDS: DOCUSATE SODIUM 100 MG CAP PO SCH ×2 (09:20→17:51)
[2019-11-04] MEDS: KETOROLAC TROMETHAMINE 10 MG TABLET PO SCH ×3 (09:26→21:43)
[2019-11-04] MEDS: dilTIAZem HCL 240 MG CAPCR PO SCH (09:27)
[2019-11-04] MEDS: TRIAMTERENE/HCTZ 37.5/25MG CAP PO SCH (13:57)
[2019-11-04] MEDS: SENNA 8.6 MG TAB PO SCH (17:50)
[2019-11-04] MEDS: GABAPENTIN 100 MG CAP PO SCH (21:44)
[2019-11-05] MEDS: ACETAMINOPHEN 500 MG TAB PO SCH ×2 (05:56→15:03)
--- NOTE | 2019-11-05 06:42 | Orthopedic Progress Note ---
Date of Service November 05, 2019 Assessment & Plan (1) Status post right knee replacement: Overall she is doing well. She is not having much pain in the right knee. She will be seen by physical therapy today for ambulation and range of motion exercises. She is on aspirin for DVT prophylaxis. She can be discharged to a rehab facility later today. She will follow-up with orthopedics in 2 weeks. Present on Admission?: Yes Admission and Anticipated Discharge Date Admission Date: November 03, 2019 Leena Ruiz was seen and examined at bedside this morning. Overall she is doing very well. She is having much less pain than she did yesterday. She has been participating well with physical therapy. She is happy her dressing has been changed. She has no complaints. Physical Exam Musculoskeletal: On physical examination of the right knee, the dressing is clean and dry. She sitting with her knee flexed at 90 degrees. She has active dorsiflexion and plantarflexion of her right ankle. Results & Data ([facility]) Vital Signs (Past 12 Hours) Vital Signs Temp Pulse Resp BP Pulse Ox 11/04/19 23:44 36.7 C 68 19 119/73 94 11/04/19 19:07 36.6 C 64 18 119/64 94 PG Care Time/CCT Total # of Minutes Spent Total Time Spent with Patient: Total time spent is greater than 50% in coordination of care (as documented) at patient's floor/unit and/or counseling patient: Coding Level of Care Code None Diagnoses Status post right knee replacement Z96.651
[2019-11-05] MEDS: OXYCODONE HCL IR 5 MG TAB (IMMEDIATE RELEASE) PO PRN ×2 (07:33→15:07)
[2019-11-05] MEDS: ASPIRIN 81 MG ECTAB PO SCH (08:54)
[2019-11-05] MEDS: dilTIAZem HCL 240 MG CAPCR PO SCH (08:54)
[2019-11-05] MEDS: TRIAMTERENE/HCTZ 37.5/25MG CAP PO SCH (08:54)
[2019-11-05] MEDS: MULTIVITAMIN TAB PO SCH (08:54)
[2019-11-05] MEDS: DOCUSATE SODIUM 100 MG CAP PO SCH (08:54)
--- NOTE | 2019-11-06 06:43 | Discharge Summary ---
Date of Service November 06, 2019 Admission HPI Per Admitting Provider Sara is a pleasant 84-year-old female who has been dealing with chronic increasing right knee pain. X-rays and clinical examination have been diagnostic for advanced osteoarthritis of the right knee. After failing conservative treatment, she has elected to proceed with a right total knee arthroplasty. She does have a history of a left knee replacement done by Dr. Taurus ca about 4 years ago. She is done well with that. She also has a history of a pulmonary embolism following a hysterectomy about 30 years ago. She has had no issues since. Principal Diagnosis Right knee replacement Discharge Data Allergies Allergy/AdvReac Type Severity Reaction Status Date / Time No Known Allergies Allergy Verified 11/03/19 07:08 Consultations 11/03/19 11:58 Consult Case Management - Discharge Planning Routine Procedures Performed Operation Date: 11/03/19 09:20 Actual Procedures p Right Total Knee Arthroplasty, Cemented(Right) - Erick Montes De Oca DO Ordered Studies 11/03/19 05:00 US - OR guided needle placemen Routine Hospital Course (1) Status post right knee replacement: On November 03, 2019 Sara arrived at [facility] and underwent a right knee replacement without complication. She had a spinal anesthetic. Postoperatively she was started on aspirin for DVT prophylaxis and transferred to the general orthopedic floors. Her hospital course was uneventful. On postop day #1 her H&H was stable and her pain was well controlled. She was able to precipitate well with physical therapy doing ambulation and range of motion exercises. On postop day #2 she continued to do very well. She was then discharged to home with [employer]. She will follow-up with orthopedics in 2 weeks. Total Time Total Time Spent Total Time Spent (In Minutes): 20 Discharge Plan Discharge Items Patient Disposition: Home - Home Health Services Reason For Visit: DJD Right Knee Discharge Diagnosis: Right knee replacement Activity: As commented below Non-emergency contact: Surgeon Call non-emergency contact if: your wound has increased redness and your wound has increased drainage Follow-up/Referrals: Nestor De La Garza DO [Primary Care Provider] - Diet: Regular Addtl Attending Provider Instructions: Activity and Therapy Recommendations: * If you are using [facility] then therapy will be provided at your home until they feel you have accomplished all of your goals. * If you are using [facility] then Physical Therapy will be provided until they feel you are ready to start Outpatient Physical Therapy. * If you are not using home therapy then Outpatient Physical Therapy should start about 3-5 days from your day of surgery. Therapy will last about 6-10 weeks * It is important not to put a pillow under your knee when you are relaxing or sleeping. It is just as important to make sure you are getting your knee perfectly straight as it is to regain your knee bend. * You were shown a series of exercises in the hospital. Do these exercises three times each day including the exercises you were shown in physical therapy. * Get up and walk several times each day. For the first four weeks, try not to stand or walk for more than one hour at a time. If you do stand or walk for more than one hour, you will not hurt anything, but your leg will likely swell. * As you feel comfortable, you may change from the walker or crutches to a cane and then to independent walking. Medications: * Narcotic You will likely be sent home from the hospital with a prescription for the narcotic pain medication that worked best throughout your stay. * Aspirin Most patients will be required to take Aspirin 81mg twice a day for 6 weeks after surgery. This is obtained [id number] and a prescription is not necessary. * Other medications may be prescribed for specific circumstances. If you have any questions, please call the office at . * Resume previous home medications unless otherwise instructed TEDs/Elastic Stockings: The white elastic stockings help limit swelling and prevent blood clots from forming in your legs.~ The more you wear them, the more they work. Wear them for six weeks. Dressing Care: Leave the Silverlon dressing in place for 7 days. After 7 days you may remove the dressing. If the incision is not draining then you may leave the jennifer open to air. If there is a little bit of drainage or if the jennifer are getting stuck on your clothing then cover the incision with a dry dressing. The jennifer will be removed at your 2 week follow-up appointment. Showering: You may shower with the Silverlon dressing in place. Do not let the shower spray hit the dressing directly. Pat the Silverlon dressing dry. If the dressing becomes wet underneath, then simply remove the dressing. Keep the incision dry until you are 7 days out from the day of surgery. After 7 days you may remove the Silverlon dressing and shower with the jennifer exposed. Let soapy water run over the jennifer and pat them dry. Do not scrub or soak the incision. Things To Watch For: * Drainage from the incision site that occurs more than one week after your surgery. * Increased redness at the incision site. * Fever above 102 degrees Fahrenheit. * Unusual chest pain or shortness of breath. * Call [facility] at with any of the above problems Follow-Up Visit: Follow-up with Dr. Montes De Oca's PA (Erick Frye) 2-3 weeks after your day of surgery. He will remove your jennifer and answer any questions. If you have any additional questions or concerns, Dr Montes De Oca is usually in the office at the same time and will be available An appointment was probably scheduled when you signed-up for surgery in the office. If you have any questions call Office Instructions: More detailed instructions as well as Frequently Asked Questions were provided in a folder by our office when you signed-up for surgery. Please review these instructions when you get home. If you have any further questions or concerns, please feel free to call the office at [phone] Pending Studies at Discharge: No Stand-Alone Forms: My [facility], Smoking Cessation Medications and DC Order Prescriptions: New tramadol 50 mg tablet 50 mg PO Q8H PRN (Reason: pain) Qty: 30 RF: 0 Continued diltiazem HCl [Cardizem CD] 240 mg capsule,extended release 24hr 240 mg PO QAM RF: 0 triamterene-hydrochlorothiazid [Dyazide] 37.5-25 mg capsule 1 cap PO QAM RF: 0 vitamin E (dl, acetate) 400 unit capsule 400 units PO QAM RF: 0 gabapentin 100 mg capsule 100 mg PO HS RF: 0 ibuprofen [Advil] 200 mg Tablet 600 - 800 mg PO BID PRN (Reason: Pain) RF: 0 meclizine 25 mg tablet 25 mg PO TID PRN (Reason: dizziness) Qty: 14 RF: 0 ondansetron HCl [Zofran] 4 mg tablet 4 mg PO Q6H PRN (Reason: nausea and vomiting) Qty: 14 RF: 0 cholecalciferol (vitamin D3) [Vitamin D3] 25 mcg (1,000 unit) Capsule 25 mcg PO QAM RF: 0 Changed aspirin [Adult Aspirin Regimen] 81 mg tablet,delayed release (DR/EC) 81 mg PO BID 42 Days Qty: 0 RF: 0 Discharge Orders: Discharge Order (Routine); Ordered 11/04/19 Ordered By: Erick Sprague/Other Patient Handouts: Pain Management After Surgery Admission Data Admit Date/Time: 11/03/19 11:01 Attending Provider: Erick Montes De Oca Admit Provider: Erick Montes De Oca Primary Care Provider: Nestor De La Garza Other Providers: [facility] ; [place] ; [facility] Other Interventions: Discharge Summary Assessment (RN) Last Done: 11/05/19 16:05 Coding Level of Care Code D/C Day Management <30 mins Diagnoses Status post right knee replacement Z96.651
== END 2019-11-05 16:57 | disposition home health service (06) ==
LOC: 3E 06:48 → ASU 06:48